=== PATIENT | male | born 1945 | race Caucasian/White ===

== ENCOUNTER 2024-07-15 15:12 | Outpatient (CLI) | payer MEDICARE ==
[~2024-07-15 15:12] MED LIST: ASPI-611 PO; ATOR40TA PO; DOCU100C40 PO; ERGO500041 PO; FISH1CAP15 PO; HYDR-3972 PO; LOP25T PO
== END 2024-07-15 23:59 | disposition home or self-care (01) ==
LOC: MRI 15:12
PROVIDERS: ATTEND Family Medicine
DX: M50.30 Other cervical disc degeneration, unspecified cervical region (principal); M51.379 Other intervertebral disc degeneration, lumbosacral region without mention of lumbar back pain or lower extremity pain; M48.02 Spinal stenosis, cervical region; M47.812 Spondylosis without myelopathy or radiculopathy, cervical region; M25.78 Osteophyte, vertebrae; M47.817 Spondylosis without myelopathy or radiculopathy, lumbosacral region; M48.07 Spinal stenosis, lumbosacral region
CPT/HCPCS: 72141; 72148